=== PATIENT | male | born 1985 | race Asian ===

== ENCOUNTER → 2017-01-30 | Outpatient (CLI) | payer OTHER ==
--- NOTE | 2017-01-30 14:51 | REP ---
CERVICAL SPINE, EIGHT VIEWS: HISTORY: Cervicalgia. There is no acute fracture or subluxation. The intervertebral discs are normal in height. The neural foramina are patent. IMPRESSION: There is no acute fracture or subluxation. Signed by Rogelio Ha MD 01/30/2017 02:52 P
== END ==
LOC: M WUC 13:57
PROVIDERS: ATTEND Physician Assistant
DX: M54.2 Cervicalgia (principal); S16.1XXA Strain of muscle, fascia and tendon at neck level, initial encounter; X58.XXXA Exposure to other specified factors, initial encounter; Y92.9 Unspecified place or not applicable

== ENCOUNTER 2017-11-11 13:42 | Emergency (ER) | payer OTHER | END 2017-11-11 16:46 | disposition left against medical advice (07) | LOC: M ED 13:42 | DX: Z53.29 Procedure and treatment not carried out because of patient's decision for other reasons (principal) ==

== ENCOUNTER 2017-11-12 09:00 | Emergency (ER) | payer OTHER ==
[2017-11-12] MEDS: ADACEL/BOOSTRIX VACCINE (DIPHTH/PERTUSS/ACELL/TETANUS)0.5ML SYR (90715) IM (10:26)
[2017-11-12] MEDS: DERMABOND TOPICAL SKIN ADHESIVE TOP (10:29)
== END 2017-11-12 10:35 | disposition home or self-care (01) ==
LOC: M ED 09:00
DX: S61.210A Laceration without foreign body of right index finger without damage to nail, initial encounter (principal); W23.0XXA Caught, crushed, jammed, or pinched between moving objects, initial encounter; Y92.9 Unspecified place or not applicable; Y93.9 Activity, unspecified; Y99.0 Civilian activity done for income or pay; Z72.0 Tobacco use; Z88.0 Allergy status to penicillin
CPT/HCPCS: 90715

== ENCOUNTER → 2018-01-30 | Outpatient (CLI) | payer OTHER | LOC: M WUC 09:33 | DX: S40.011A Contusion of right shoulder, initial encounter (principal); X58.XXXA Exposure to other specified factors, initial encounter; Y92.9 Unspecified place or not applicable | CPT/HCPCS: 73030 ==

== ENCOUNTER → 2019-10-23 | Outpatient (CLI) | payer BC ==
--- NOTE | 2019-10-23 10:06 | REP ---
REASON: Trauma left hand 4th digit. FINDINGS: No acute fracture or destructive osseous lesion. Electronically Signed by Kishore Amos DO 10/23/2019 10:17 A
== END ==
LOC: M WUC 09:19
PROVIDERS: ATTEND Physician Assistant
DX: S60.042A Contusion of left ring finger without damage to nail, initial encounter (principal); X58.XXXA Exposure to other specified factors, initial encounter; Y92.9 Unspecified place or not applicable

== ENCOUNTER → 2019-11-19 | Outpatient (CLI) | payer BC ==
--- NOTE | 2019-11-19 18:58 | REP ---
Clinical: Trauma. Technique: AP, lateral, bilateral oblique views left fourth digit . Findings: The osseous structures and joint spaces are intact and normal. There is no evidence for acute fracture or dislocation. Surrounding soft tissues are unremarkable. No subcutaneous emphysema or radiodense foreign body. Impression: No acute fracture or dislocation. Electronically Signed by Faheem Rosas MD 11/19/2019 06:49 P
== END ==
LOC: M WUC 09:12
PROVIDERS: ATTEND Physician Assistant
DX: S60.042D Contusion of left ring finger without damage to nail, subsequent encounter (principal)

== ENCOUNTER → 2020-03-07 | Outpatient (CLI) | payer BC ==
--- NOTE | 2020-03-23 07:53 | REP ---
RIGHT KNEE SERIES CLINICAL: Contusion. TECHNIQUE: AP, lateral, bilateral oblique, and sunrise views of the right knee. FINDINGS: Osseous structures, joint spaces, and surrounding soft tissues are normal. No acute fracture or dislocation. No effusion. No subcutaneous emphysema or foreign body. IMPRESSION: No acute injury by radiographic evaluation. MTDD
== END ==
LOC: M WUC 09:10
PROVIDERS: ATTEND Physician Assistant
DX: S80.01XA Contusion of right knee, initial encounter (principal); S80.11XA Contusion of right lower leg, initial encounter; X58.XXXA Exposure to other specified factors, initial encounter; Y92.9 Unspecified place or not applicable